=== PATIENT | female | born 1980 | race Caucasian/White ===

== ENCOUNTER 2019-04-04 15:23 | Emergency (ER) | payer MEDICAID ==
[~2019-04-04] VITALS: Ht 154.9 cm; Wt 77.1 kg
[2019-04-04 15:44] VITALS: BP_SYST 117
--- NOTE | 2019-04-04 15:49 | NUR ---
Patient triaged and placed in waiting room. VSS and patient appears in no acute distress at this time. Accompanied by family, awaiting available bed, and MD notified of need for MSE.
[2019-04-04 16:32] LABS: BASOPHILS % (AUTO) 0.4 % (0.0-2.0); EOSINOPHILS # (AUTO) 0.1 K/uL (0.0-0.4); EOSINOPHILS % (AUTO) 1.2 % (0.0-4.0); HEMATOCRIT 39.5 % (36-48); HEMOGLOBIN 12.9 g/dL (12.0-16.0); LYMPHOCYTES # (AUTO) 1.8 K/uL (1.0-5.5); LYMPHOCYTES % (AUTO) 16.6 % (20.5-51.5); MEAN CORPUSCULAR HEMOGLOBIN 26 pg (27-31); MEAN CORPUSCULAR HGB CONC 33 % (32-36); MEAN CORPUSCULAR VOLUME 79 fL (79.0-98.0); MONOCYTES # (AUTO) 0.7 K/uL (0.0-1.0); MONOCYTES % (AUTO) 6.1 % (1.7-9.3); NEUTROPHILS # (AUTO) 8.3 K/uL (1.8-7.7); NEUTROPHILS % (AUTO) 75.7 % (40.0-70.0); PLATELET COUNT (AUTO) 244 K/uL (130-430); RED BLOOD CELL COUNT(AUTO) 5.02 MIL/uL (4.2-6.2); RED CELL DISTRIBUTION WIDTH 14.1 % (9.0-15.0)
[2019-04-04 16:47] LABS: INR 0.9 (0.8-1.2); PROTHROMBIN TIME 9.7 SECS (9.5-12.5)
--- NOTE | 2019-04-04 16:49 | NUR ---
BROUGHT BACK TO [facility] BED AND REPORT GIVEN TO TATYANA
[2019-04-04 16:50] LABS: CALCIUM 9.3 mg/dL (8.4-11.0); CREATININE 0.61 mg/dL (0.55-1.30)
--- NOTE | 2019-04-04 16:53 | NUR ---
ER Dr. Ricketts at bedside examining patient.
[2019-04-04 16:54] LABS: ALBUMIN 2.7 g/dL (3.4-4.8); C-REACTIVE PROTEIN QUANT 1.5 mg/dL (0-0.5); TOTAL BILIRUBIN 0.2 mg/dL (0.0-1.0); URIC ACID 2.5 mg/dL (2.4-7.0)
--- NOTE | 2019-04-04 17:00 | NUR ---
Pt AAOx4 presents to ED c/o 05/13 pain to R ankle r/t fracture to 5th metatarsal s/p mechanical trip and fall x 2 months ago. Pt has been taking tylenol at home with mild relief. Swelling and erythema noted to site. No other injuries/complaints per pt/noted. Will continue to monitor.
--- NOTE | 2019-04-04 17:06 | NUR ---
Pt returned from radiology via wheelchair in stable condition
[2019-04-04 18:28] VITALS: BP_SYST 117
--- NOTE | 2019-04-04 18:28 | NUR ---
Patient given written and verbal discharge instructions and verbalizes understanding. ER MD discussed with patient the results and treatment provided. Patient in stable condition. ID arm band removed. Rx of TYLENOL WITH CODEINE NO 3 given. Patient educated on pain management and to follow up with PMD. Pain Scale 0/10 Opportunity for questions provided and answered. Medication side effect fact sheet provided.
== END 2019-04-04 18:28 | disposition home or self-care (01) ==
LOC: SED 15:23
DX: S93.402A Sprain of unspecified ligament of left ankle, initial encounter (principal); X58.XXXA Exposure to other specified factors, initial encounter; Y93.89 Activity, other specified; Y92.89 Other specified places as the place of occurrence of the external cause; Y99.8 Other external cause status
CPT/HCPCS: 36415; 80053; 81025; 84550-TC; 84703; 85025; 85610-TC; 85730-TC; 86140; 99284